=== PATIENT | female | born 1950 | race Caucasian/White ===

== ENCOUNTER 2021-02-19 14:12 | Emergency (ER) | payer OTHER ==
[~2021-02-19] VITALS: Ht 154.9 cm; Wt 47.6 kg
[2021-02-19] MEDS ORDERED: LISI20TA30 PO (14:24)
[2021-02-19] MEDS ORDERED: LORA-259 PO (14:24)
[2021-02-19] MEDS ORDERED: AMLO10TA4 PO (14:24)
[2021-02-19 14:49] LABS: HEMATOCRIT 49.6 % (31.2-41.9); MEAN CORPUSCULAR HEMOGLOBIN 33.3 uug (24.7-32.8); MEAN CORPUSCULAR VOLUME 97.5 fL (75.5-95.3); PLATELET COUNT (AUTO) 309 K/uL (179-408)
[2021-02-19 14:51] LABS: CREATININE 0.5 mg/dL (0.6-1.3); POTASSIUM 4.6 mmol/L (3.5-5.1)
[2021-02-19] MEDS ORDERED: DEXAMETHASONE SOD PHOSPHATE 10 MG INJ ONE (14:51)
[2021-02-19] MEDS ORDERED: CEFTRIAXONE /D5W 50ML IVPB **ER PYXIS IV ONE (14:52)
[2021-02-19] MEDS ORDERED: AZITHROMYCIN 500MG/ D5W 250ML IVPB **ER PYXIS ONLY IV ONE (14:52)
[2021-02-19 14:54] LABS: ABG BASE EXCESS 1.3 mmol/L; ABG HCO3 24.7 mmol/L; ABG PCO2 35.8 mmHg (35.0-45.0); ABG PH 7.456 (7.350-7.450); ABG PO2 53.2 mmHg (75.0-100.0); ABG SITE RIGHT RADIAL; ABG TOTAL HEMOGLOBIN 17.3 G/dL (12.0-16.0); COHb 1.4 % (0.5-1.5); MetHb 0.4 % (0.0-1.5); VENT MODE Nasal Cannula
[2021-02-19] MEDS: CEFTRIAXONE 1 G in IV DEXTROSE 5% 50 ML IV ONE (14:54)
[2021-02-19] MEDS: DEXAMETHASONE SOD PHOSPHATE 4 MG INJ IV ONE (14:54)
[2021-02-19] MEDS: IV NORMAL SALINE 1000 ML BAG IV ONE (14:54)
--- NOTE | 2021-02-19 14:57 | NUR ---
PT IS IN ROOM #1A. DR LTAIF EVALUATED THE PT.
[2021-02-19] MEDS: AZITHROMYCIN IV 500 MG in IV DEXTROSE 5% 250 ML IV ONE (15:01)
[2021-02-19 15:14] LABS: BILIRUBIN,DIRECT 0.3 mg/dL (0.0-0.2); BILIRUBIN,TOTAL 0.9 mg/dL (0.2-1.0); TOTAL PROTEIN, SERUM 7.4 g/dL (6.4-8.2)
[2021-02-19] MEDS ORDERED: IOHEXOL 300MG/ML 100 ML INFUS..BTL ONE (16:23)
[2021-02-19] MEDS ORDERED: IV NORMAL SALINE 250 ML IV ONE (16:23)
[2021-02-19] MEDS ORDERED: SWABABLE VALVE TRANSFER SET EA MC ONE (16:23)
--- NOTE | 2021-02-19 18:17 | NUR ---
DR LATIF TALKED TO DR FLOYD. PT IS GOING TO BE TRANSFERD TO [facility]. DR FLOYD IS ACCEPTING MD.
--- NOTE | 2021-02-19 19:23 | NUR ---
Report recieved from REA Peres. Pt. resting in bed, denies any changes in symptoms. No signs of distress,
[2021-02-19] MEDS ORDERED: ACETAMINOPHEN 325 MG TABLET ONE (20:00)
[2021-02-19] MEDS: ACETAMINOPHEN 325 MG TABLET PO ONE (20:01)
--- NOTE | 2021-02-19 20:02 | NUR ---
Antonino from [facility] called-Pt. will be in rm 644 bed 2. Report # is [phone]. Ambulance ETA is [id number]. Called to give report and the nurse said they will call me back.
--- NOTE | 2021-02-19 20:14 | NUR ---
Gave report to REA Leonardo from [facility].
[2021-02-19] MEDS: LORAZEPAM 0.5 MG TABLET PO ONE (22:49)
[2021-02-19] MEDS ORDERED: LORAZEPAM 1 MG TABLET ONE (22:53)
--- NOTE | 2021-02-19 23:24 | NUR ---
Pt resting comfortably in bed. Juice and pudding given to pt. No changes in condition. Will continue to monitor.
--- NOTE | 2021-02-19 23:24 | NUR ---
Ambulance called and they will be coming at aproximately 0000.
--- NOTE | 2021-02-20 00:25 | NUR ---
Pt picked up by Ambulance to be transported to [facility]. All belongings went w/ pt.
== END 2021-02-20 00:27 | disposition short-term general hospital (02) ==
LOC: ER 14:12
DX: J43.2 Centrilobular emphysema (principal); R91.8 Other nonspecific abnormal finding of lung field; E87.1 Hypo-osmolality and hyponatremia; J90 Pleural effusion, not elsewhere classified; I70.0 Atherosclerosis of aorta; Z93.3 Colostomy status; F41.9 Anxiety disorder, unspecified; F17.200 Nicotine dependence, unspecified, uncomplicated; Z20.822 Contact with and (suspected) exposure to COVID-19
CPT/HCPCS: 36415; 36600; 71045; 71260; 80048; 80076; 83605; 83880; 84145; 84484; 85025; 85730; 87040 ×2; 87426; 93005; 96365; 96366; 96368; 96375; 99285; J0456; J0696; J1100; Q9967; 70030-TC; A4663; J7030; J7050